=== PATIENT | female | born 1990 ===

== ENCOUNTER 2020-09-11 12:52 | Emergency (ER) | payer OTHER | END 2020-09-11 14:09 | disposition home or self-care (01) | LOC: JVIRT 12:52 | DX: U07.1 COVID-19 (principal) | CPT/HCPCS: 87804; C9803; G2012-GT; Q3014-GT; U0003 ==

== ENCOUNTER 2020-09-20 05:45 | Emergency (ER) | payer OTHER ==
[2020-09-20 05:56] VITALS: BP 113/76; PULSE 95; TEMP 98.1; BMI 17.7
[2020-09-20] MEDS ORDERED: LORazepam 0.5 MG TABLET PO ONE (07:16)
[2020-09-20] MEDS ORDERED: LORazepam 0.5 MG TABLET ONE (07:16)
[2020-09-20 08:17] LABS: BASO % 0.5 % (0-2.0); EOS % 0.2 % (0-4.5); HEMATOCRIT 44.9 % (32.4-45.2); HEMOGLOBIN 15.4 GM/dL (10.7-15.3); LYMPH % 18.6 % (8-40); MCHC 34.3 g/dl (32.0-36.0); MEAN CELL VOLUME 90.4 fl (80-96); MEAN PLT VOLUME 8.7 fl (7.5-11.1); NEUT % 73.7 % (42.8-82.8); PLATELET COUNT 288 K/MM3 (134-434); RBC 4.96 M/mm3 (3.60-5.2); RDW 12.8 % (11.6-15.6); WHITE BLOOD COUNT 5.5 K/mm3 (4.0-10.0)
[2020-09-20 08:52] LABS: ALBUMIN 5.3 g/dl (3.4-5.0); BILIRUBIN,TOTAL 0.4 mg/dL (0.2-1); CALCIUM 9.9 mg/dL (8.5-10.1); CREATININE 0.7 mg/dL (0.55-1.3); TOT PROT 8.4 g/dl (6.4-8.2)
[2020-09-20 09:03] LABS: INR 0.97 (0.83-1.09); PROTHROMBIN TIME (PATIENT) 11.7 SEC (9.7-13.0)
== END 2020-09-20 08:20 | disposition home or self-care (01) ==
LOC: FER 05:45
DX: F41.9 Anxiety disorder, unspecified (principal)
CPT/HCPCS: 36415; 80053; 82550; 84484; 85025; 85379; 85610; 93005; 99284-25